=== PATIENT | female | born 1990 | race Caucasian/White ===

== ENCOUNTER 2021-01-20 22:05 | Outpatient (CLI) | payer OTHER ==
[~2021-01-20 22:05] MED LIST: COLACE 100MG C100 MG PO; TESSALON PERLE100 MG PO
== END 2021-01-21 07:42 | disposition home or self-care (01) ==
LOC: GENOP 22:05
DX: O47.03 False labor before 37 completed weeks of gestation, third trimester (principal); O40.3XX0 Polyhydramnios, third trimester, not applicable or unspecified; O16.3 Unspecified maternal hypertension, third trimester; O99.283 Endocrine, nutritional and metabolic diseases complicating pregnancy, third trimester; E04.9 Nontoxic goiter, unspecified; O99.353 Diseases of the nervous system complicating pregnancy, third trimester; G43.909 Migraine, unspecified, not intractable, without status migrainosus; Z3A.36 36 weeks gestation of pregnancy
CPT/HCPCS: 81001; 96360; 96361

== ENCOUNTER 2021-01-31 05:33 | Inpatient (IN) | payer OTHER ==
[2021-01-31] MEDS ORDERED: FERREX 150 FOR1 EAC1 PO (11:21)
[2021-01-31] MEDS ORDERED: PERCOCET 5/325 T1 EA PO (11:21)
[2021-01-31] MEDS ORDERED: IBUPROFEN800 MG PO (11:21)
[2021-01-31] MEDS ORDERED: COLACE100 MG PO (11:21)
[2021-02-01 07:11] LABS: HEMOGLOBIN 7.3 gm/dl (12.3-15.3)
== END 2021-02-01 17:21 | disposition home or self-care (01) | DRG 787 ==
LOC: OB 05:33
PROVIDERS: ADMIT Obstetrics & Gynecology
PROC: 10D00Z1 Extraction of Products of Conception, Low, Open Approach (ICD-10-PCS; principal; 2021-01-31 09:00)
DX: O34.211 Maternal care for low transverse scar from previous cesarean delivery (principal); O98.52 Other viral diseases complicating childbirth; O99.354 Diseases of the nervous system complicating childbirth; O13.4 Gestational [pregnancy-induced] hypertension without significant proteinuria, complicating childbirth; Z3A.38 38 weeks gestation of pregnancy; Z37.0 Single live birth; B00.9 Herpesviral infection, unspecified; G43.909 Migraine, unspecified, not intractable, without status migrainosus; Z81.8 Family history of other mental and behavioral disorders; Z83.3 Family history of diabetes mellitus; Z82.49 Family history of ischemic heart disease and other diseases of the circulatory system; Z20.822 Contact with and (suspected) exposure to COVID-19
CPT/HCPCS: 85014; 85018; 90715; C9113; J0690; J1885; J2274; J2370; J2405; J2590; J2765; J2795; J7120